=== PATIENT | male | born 1980 | race Caucasian/White ===

== ENCOUNTER 2019-03-21 10:15 | Observation (INO) ==
[2019-03-21] MEDS ORDERED: SODIUM CHLORIDE 0.9% 1000ML 1,000 ML IV SCH (11:15)
[2019-03-21 11:17] LABS: Basophils # (auto) 0.01 K/uL (0-0.2); Basophils % (auto) 0.2 %; Eosinophils # (auto) 0.14 K/uL (0-0.5); Eosinophils % (auto) 2.2 %; Hematocrit (blood only) 44.2 % (42-52); Hemoglobin 15.2 g/dL (14.0-18.0); Immature Granulocytes # (auto) 0.01 K/uL (0.00-0.02); Immature Granulocytes % (auto) 0.2 %; Lymphocytes # (auto) 1.63 K/uL (1.2-3.4); Lymphocytes % (auto) 25.8 %; Mean Corpuscular Hemoglobin 29.1 pg (25-34); Mean Corpuscular Hgb Conc 34.4 g/dL (32-36); Mean Corpuscular Volume 84.7 fL (80-100); Mean Platelet Volume 11.3 fL (7.4-10.4); Monocytes # (auto) 0.52 K/uL (0.11-0.59); Monocytes % (auto) 8.2 %; Neutrophils # (auto) 4.02 K/uL (1.4-6.5); Neutrophils % (auto) 63.4 %; Platelet Count 213 K/uL (130-400); RDW Coefficient of Variation 13.5 % (11.5-14.5); RDW Standard Deviation 41.5 fL (36.4-46.3); Red Blood Count 5.22 M/uL (4.7-6.1); White Blood Count 6.33 K/uL (4.8-10.8)
[2019-03-21 11:36] LABS: Alanine Aminotransferase 55 U/L (12-78); Aspartate Aminotransferase 25 U/L (15-37); BUN Creatinine Ratio 14.7 (10-20); Blood Urea Nitrogen 14 mg/dl (7-18); Calcium 9.9 mg/dl (8.5-10.1); Carbon Dioxide 28 mmol/L (21-32); Chloride 102 mmol/L (98-107); Creatinine Clr Calc Pharmacy 156.4 ml/min; Est GFR (African American) 119.4; Glucose 93 mg/dl (70-99); Potassium 3.9 mmol/L (3.5-5.1); Sodium 137 mmol/L (136-145)
[2019-03-21 11:39] LABS: Albumin Globulin Ratio 1.1 (0.9-2); Alkaline Phosphatase 73 U/L (45-117); Bilirubin,Total 0.3 mg/dl (0.2-1); Globulin 3.8 gm/dl (2.5-4.0); Total Protein 7.8 gm/dl (6.4-8.2)
--- NOTE | 2019-03-21 11:43 | CT Scan Report ---
HEAD CT NONCONTRAST CT DOSE: 614.27 mGy.cm HISTORY: dizzy eval for cva TECHNIQUE: Multiaxial CT images of the head were performed without the use of intravenous contrast. A utomated exposure control was utilized for this study. A dose lowering technique was utilized adheri ng to the principles of ALARA. Comparison: None. Findings: The paranasal sinuses and mastoid air cells are clear. The calvarium and skull base are int act. The ventricles and sulci are within normal limits. There is no mass, hematoma, midline shift, or acute infarct. Impression: No acute intracranial abnormality. Electronically signed by: Sergey Farah M.D. 03/21/2019 11:42 AM
[2019-03-21 11:52] LABS: Troponin I < 0.015 ng/ml (0-0.045)
[2019-03-21 11:57] LABS: D Dimer < 190 ug/L FEU (0-500)
[2019-03-21 12:47] LABS: Appearance Urine Clear (Clear); Bilirubin Urine Negative (Negative); Blood Urine Negative (Negative); Color Urine Yellow; Glucose Urine UA Negative (Negative); Ketones Urine Negative (Negative); Leukocyte Esterase Urine Negative (Negative); Nitrite Urine Negative (Negative); Protein Urine Negative (Negative); Specific Gravity Urine 1.012 (1.000-1.030); Urobilinogen Urine Negative (Negative); pH Urine 7.5 (4.5-7.5)
--- NOTE | 2019-03-21 12:53 | XRay Report ---
XR chest 2V routine HISTORY: dizzy eval for pna COMPARISON: None. FINDINGS: The lungs are clear. Cardiac silhouette is normal in size. No pleural effusions. No pneumot horax. IMPRESSION: No acute process. Electronically signed by: Sergey Farah M.D. 03/21/2019 12:52 PM
[2019-03-21 13:10] LABS: Amphetamines+Metham, Urine Neg (Neg); Barbiturates, Urine Neg (Neg); Benzodiazepine, Urine Neg (Neg); Cocaine, Urine Neg (Neg); MDMA (Ecstacy), Urine Neg (Neg); Methadone, Urine Neg (Neg); Opiate, Urine Neg (Neg); Phencyclidine, Urine Neg (Neg)
[2019-03-21] MEDS ORDERED: NITROGLYCERIN 2% OINTMENT 30GM TUBE EXT ONE (13:28)
[2019-03-21] MEDS ORDERED: OPTIRAY 320 125ml IV PRN (13:49)
--- NOTE | 2019-03-21 14:12 | CT Scan Report ---
CT ANGIOGRAM OF THE CHEST CLINICAL HISTORY: Atypical chest pain. Dizziness. COMPARISON STUDY: Chest x-ray dated 03/21/2019. TECHNIQUE: Following the IV administration of 118 cc of Optiray 320, CT angiogram of the chest was pe rformed from the upper abdomen to the thoracic inlet utilizing the pulmonary embolus protocol. Images are reviewed in the axial, sagittal, and coronal planes. 3-D MIPS images are created and assessed. T here is a malfunction with the IV line which became disconnected during the initial injection. IV con trast was then administered without complication. A dose lowering technique was utilized adhering to the principles of ALARA. CT DOSE: 2020.70 mGy.cm FINDINGS: Thyroid: Imaged portions of the thyroid gland are normal in size and attenuation. Thoracic aorta: The thoracic aorta is normal in caliber and demonstrates bovine variant arch anatomy. No dissection is seen. Pulmonary vasculature: The pulmonary trunk is normal in caliber. There are no filling defects identif ied in main, lobar, or segmental pulmonary branches to suggest pulmonary embolus. Heart: The heart is normal in size and without pericardial effusion. Lungs and pleural spaces: The lungs and pleural spaces are clear. The trachea and central airways are patent. Mediastinum: There is no mediastinal lymphadenopathy. Blaire: Clear. Axillae: There is no axillary lymphadenopathy. Upper abdomen: There is a tiny hiatal hernia. The liver is enlarged and steatotic. Skeletal structures: No lytic or blastic bony lesions are seen. A large Schmorl's node is seen in the superior endplate of T11. IMPRESSION: 1. There is no evidence of pulmonary embolus in the main, lobar, or segmental pulmonary arteries. 2. There is no airspace consolidation or pleural effusion. 3. Hepatomegaly and hepatic steatosis. Electronically signed by: Freddy Jesus M.D. 03/21/2019 2:10 PM
[2019-03-21] MEDS ORDERED: CALCIUM CARBONATE 500 MG CHEWABLE TAB PO STA (15:36)
--- NOTE | 2019-03-21 15:50 | History & Physical Report ---
Date of Service March 21, 2019 Assessment & Plan (1) Hypertensive urgency: Blood pressure was 183/112 and persistently elevated in the ER. This may be causing all symptoms including chest tightness and lightheadedness. Nitro paste brought BP into high normal range. Will start Lis/HCTZ now and continue to monitor BP closely. (2) Syncope: One episode of questionable LOC while in the ER after receiving a PIV. Multiple reports of presyncopal episodes in the past usually along with exertion or environmental exposures. Will obtain an echocardiogram to evaluate further. (3) Orthostatic hypotension: Orthostatic positive with position change. Gave NSS and will cont IVF for another 2 Liters. Differential for dizziness/lightheadedness includes but not limited to postural hypotension, ACS, bilateral cerumen impaction, B12 deficiency, diabetes, vertebrobasilar insufficiency. Trend trops, echo ordered, Debrox to ears, B12 and A1C with next blood draw. Monitor for improvement on telemetry. (4) Obesity: (5) DVT prophylaxis: SCDs Full Dispo-plan for home when medically stable. Maria T Polo DO [facility] Hospitalist History of Present Illness Chief Complaint: recurrent lightheadedness Primary Care Provider: NO PCP 38 yo obese but otherwise healthy man presents to the ER today after recurrent episodes of lightheadedness and dizziness. 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 He reports eating breakfast consisting of a [employer] breakfast quesadilla and water around 0600, and the first concerning symptom occurring around 0900. He reported the episode going away and then returning after he sat down in the breakroom at work. He reports the episodes were recurring over the next 30-45 minutes. The initial episode of lightheadedness was associated with some regurgitation of food into his throat, a symptom he typically feels when lying down at night soon after eating. He denies any associated stroke like symptoms such as headache, exp ressive or receptive aphasia, difficulty walking or difficulty moving arms or legs. He denies any visual changes. He denies any shortness of breath, fevers, chills, recent infectious symptoms, diarrhea, constipation, blood per rectum, vomiting. He has been eating and feeling fine up until today. He denies use of OTC products such as supplements or herbals. Upon returning from CT scan, he developed a chest tightness that involved his "whole body" and lasted approximately 45 minutes, resolved with nitropaste to the chest wall. When this chest pain occurred, he denied any associated diaph oresis, SOB, lightheadedness, nausea or other issues. He is currently feeling well at rest but on exam became significantly lightheaded with sitting up in bed. Orthostatic vital signs were positive in the ER and he was given 1L NSS. He is hungry and asking for food. Allergies Allergy/AdvReac Type Severity Reaction Status Date / Time No Known Allergies Allergy Unverified 03/21/19 12:31 Home Medications Home Medications Medication Instructions Recorded Confirmed Type No Known Home Medications 03/21/19 03/21/19 History Past Med/Surg History Medical History Heartburn symptom Surgical History No history of previous surgery Family History Father CHF (congestive heart failure) Mother Kidney disease Grandfather (Paternal) , in 50s from heart attack Coronary heart disease Social History Preferred Language: [place] current occupation: makes computers Feels Safe at Home: Yes Smoking Status: Never smoker Hx Alcohol Use: No Hx Substance Use: No Review of Systems Review of Systems: At least ten systems were reviewed and negative except as indicated on HPI above. Physical Exam Physical Exam: CONSTITUTIONAL: obese, vitals as above, generally well- appearing EYES: EOMI bilaterally, PERRL, normal conjunctivae, no scleral icterus ENT: external ear and nose normal, oropharynx clear, +cerumen in auditory canals bilat blocking view of TM NECK: trachea midline RESPIRATORY: clear to auscultation bilaterally, no crackles, rales or wheezes, normal respiratory effort CARDIOVASCULAR: regular rate and rhythm, S1 and 2 heard without murmurs, gallops or rubs, no JVD, no peripheral edema GASTROINTESTINAL: normal bowel sounds, soft, nontender, nondistended MUSCULOSKELETAL: strength 5/5 throughout, head is normocephalic and atraumatic SKIN: warm and dry NEUROLOGIC: No facial palsy, no dysarthria. CN 2-12 grossly intact, no sensory deficit, normal cognition, normal speech, no tremor PSYCHIATRIC: alert cooperative and oriented to person, place and time. Results & Data Vital Signs (Past 12 Hours) Vital Signs Temp Pulse Pulse Resp BP BP Pulse Ox 03/21/19 14:30 96 H 20 157/90 H 95 03/21/19 13:46 81 18 145/87 H 91 03/21/19 11:57 93 H 18 128/95 97 03/21/19 10:43 89 99 03/21/19 10:22 36.8 C 89 20 183/112 H 99 Laboratory Results Short CBC 03/21/19 Range/Units 10:45 WBC 6.33 (4.8-10.8) K/uL Hgb 15.2 (14.0-18.0) g/dL Hct 44.2 (42-52) % Plt Count 213 (130-400) K/uL BMP 03/21/19 10:45 Sodium 137 Potassium 3.9 Chloride 102 Carbon Dioxide 28 BUN 14 Creatinine 0.93 Glucose 93 Calcium 9.9 Cardiac Enzymes 03/21/19 03/21/19 Range/Units 10:45 10:45 Troponin I < 0.015 Cancelled (0-0.045) ng/ml Liver Function 03/21/19 Range/Units 10:45 Total Bilirubin 0.3 (0.2-1) mg/dl AST 25 (15-37) U/L ALT 55 (12-78) U/L Alkaline Phosphatase 73 (45-117) U/L Albumin 4.0 (3.4-5.0) gm/dl Urine 03/21/19 Range/Units 11:50 Urine Color Yellow Urine Appearance Clear (Clear) Urine pH 7.5 (4.5-7.5) Ur Specific [place] 1.012 (1.000-1.030) Urine Protein Negative (Negative) Urine Glucose (UA) Negative (Negative) Diagnostic Findings CT ANGIOGRAM OF THE CHEST CLINICAL HISTORY: Atypical chest pain. Dizziness. COMPARISON STUDY: Chest x-ray dated 03/21/2019. TECHNIQUE: Following the IV administration of 118 cc of Optiray 320, CT angiogram of the chest was performed from the upper abdomen to the thoracic inlet utilizing the pulmonary embolus protocol. Images are reviewed in the axial, sagittal, and coronal planes. 3-D MIPS images are created and assessed. There is a malfunction with the IV line which became disconnected during the initial injection. IV contrast was then administered without complication. A dose lowering technique was utilized adhering to the principles of ALARA. CT DOSE: 2020.70 mGy.cm FINDINGS: Thyroid: Imaged portions of the thyroid gland are normal in size and attenuation. Thoracic aorta: The thoracic aorta is normal in caliber and demonstrates bovine variant arch anatomy. No dissection is seen. Pulmonary vasculature: The pulmonary trunk is normal in caliber. There are no filling defects identified in main, lobar, or segmental pulmonary branches to suggest pulmonary embolus. Heart: The heart is normal in size and without pericardial effusion. Lungs and pleural spaces: The lungs and pleural spaces are clear. The trachea and central airways are patent. Mediastinum: There is no mediastinal lymphadenopathy. Blaire: Clear. Axillae: There is no axillary lymphadenopathy. Upper abdomen: There is a tiny hiatal hernia. The liver is enlarged and steatotic. Skeletal structures: No lytic or blastic bony lesions are seen. A large Schmorl's node is seen in the superior endplate of T11. IMPRESSION: 1. There is no evidence of pulmonary embolus in the main, lobar, or segmental pulmonary arteries. 2. There is no airspace consolidation or pleural effusion. 3. Hepatomegaly and hepatic steatosis. XR chest 2V routine HISTORY: dizzy eval for pna COMPARISON: None. FINDINGS: The lungs are clear. Cardiac silhouette is normal in size. No pleural effusions. No pneumothorax. IMPRESSION: No acute process. HEAD CT NONCONTRAST CT DOSE: 614.27 mGy.cm HISTORY: dizzy eval for cva TECHNIQUE: Multiaxial CT images of the head were performed without the use of intravenous contrast. Automated exposure control was utilized for this study. A dose lowering technique was utilized adhering to the principles of ALARA. Comparison: None. Findings: The paranasal sinuses and mastoid air cells are clear. The calvarium and skull base are intact. The ventricles and sulci are within normal limits. There is no mass, hematoma, midline shift, or acute infarct. Impression: No acute intracranial abnormality. Medications Administered Nitro paste NSS x 1L Code Status & VTE Plan Code Status FULL VTE Prophylaxis Plan VTE Prophylaxis will be ordered: Yes Critical Care Time Critical Care Time: No Prolonged Care Time Prolonged Care Time: No Critical Care Time Critical Care Time: No
[2019-03-21] MEDS ORDERED: ASPIRIN 81 MG CHEW PO STA (16:28)
[2019-03-21] MEDS ORDERED: LISINOPRIL/HCTZ 10/12.5MG TAB PO SCH (16:30)
--- NOTE | 2019-03-21 16:42 | Emergency Department Note ---
Entered by Armond Lambert acting as a scribe for Samson Bowens MD History of Present Illness General Chief complaint: Dizziness Stated complaint: STOMACH PAIN,DIZZY, NEAR SYNCOPE Time Seen by Provider: 03/21/19 10:52 Source: patient History of Present Illness Provider complaint: dizziness and light headedness Onset (ago): hour(s) 2 Location: head Pain Consistency: + intermittent Maximum Pain Intensity: 0 Quality: + other (dizziness, light headedness, room spinning) Exacerbated By: + movement Associated symptoms: + denies other symptoms; no chest pain, no fever/chills, no headaches, no shortness of breath and no weakness The patient is a 38 y/o male with no past medical history, who presents to the emergency department for evaluation of intermittent light headedness that began two hours ago. The patient states that he felt light headed with the room slightly spinning when he threw up in his mouth. He notes that he walked to the bathroom and felt okay but when he went back to his workspace he began feeling dizzy again with mild abdominal discomfort. 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 The mother notes that the patient has experienced the dizzy episodes in the past but the patient notes not within the past few months to year and never this long. The mother also reports that in the ED the patient closed his eyes, with lip quivering when the patient began mumbling and was unresponsive to his name. The patient states that he does not remember this episode and was not confused afterwards. The patient denies chest pain, SOB, fever, vomiting, diarrhea, numbness, weakness, headache, recent head injury, and any other symptoms. Home Medications Home Medications Medication Instructions Recorded Confirmed Type No Known Home Medications 03/21/19 03/21/19 History Allergies Allergy/AdvReac Type Severity Reaction Status Date / Time No Known Allergies Allergy Unverified 03/21/19 12:31 Past Med/Surg History Medical History Heartburn symptom Surgical History No history of previous surgery Family History Father CHF (congestive heart failure) Mother Kidney disease Grandfather (Paternal) , in 50s from heart attack Coronary heart disease Social History Preferred Language: Hebrew current occupation: makes computers Feels Safe at Home: Yes Smoking Status: Never smoker Hx Alcohol Use: No Hx Substance Use: No Review of Systems See HPI for pertinent positives & negatives. and A total of 10 systems reviewed and were otherwise negative Physical Exam Vital Signs Vital Signs - 24 hr 03/21/19 10:22 03/21/19 10:43 03/21/19 11:53 Temperature 36.8 C Temperature Source Oral Sepsis Recent Fever Within 48 Hours No Sepsis New/Unexplained Change in Mental Status No Sepsis Action Taken by Nursing No Action Required Pulse Rate - Lying 82 Pulse Rate - Sitting 91 H Pulse Rate - Standing 98 H Pulse Rate 89 89 Pulse Rate [Left] Pulse Rhythm Regular Pulse Strength Normal Respiratory Rate 20 Respiratory Effort / Characteristics Non-Labored Spontaneous Respiratory Depth Normal Respiratory Pattern Regular Blood Pressure - Lying 135/94 Blood Pressure - Sitting 161/101 H Blood Pressure- Standing 128/95 Blood Pressure 183/112 H Blood Pressure [Right Arm] Blood Pressure Mean 135 Blood Pressure Mean [Right Arm] Blood Pressure Position Sitting Blood Pressure Position [Right Arm] Pulse Oximetry 99 99 Oxygen Delivery Method Room Air Room Air 03/21/19 11:57 03/21/19 13:46 03/21/19 14:30 Temperature Temperature Source Sepsis Recent Fever Within 48 Hours Sepsis New/Unexplained Change in Mental Status Sepsis Action Taken by Nursing Pulse Rate - Lying Pulse Rate - Sitting Pulse Rate - Standing Pulse Rate Pulse Rate [Left] 93 H 81 96 H Pulse Rhythm Pulse Strength Respiratory Rate 18 18 20 Respiratory Effort / Characteristics Non-Labored Spontaneous Non-Labored Spontaneous Non-Labored Spontaneous Respiratory Depth Respiratory Pattern Blood Pressure - Lying Blood Pressure - Sitting Blood Pressure- Standing Blood Pressure Blood Pressure [Right Arm] 128/95 145/87 H 157/90 H Blood Pressure Mean Blood Pressure Mean [Right Arm] 106 106 112 Blood Pressure Position Blood Pressure Position [Right Arm] Standing Sitting Lying Pulse Oximetry 97 91 95 Oxygen Delivery Method Room Air Room Air Room Air 03/21/19 16:16 Temperature Temperature Source Sepsis Recent Fever Within 48 Hours Sepsis New/Unexplained Change in Mental Status Sepsis Action Taken by Nursing Pulse Rate - Lying Pulse Rate - Sitting Pulse Rate - Standing Pulse Rate Pulse Rate [Left] 91 H Pulse Rhythm Pulse Strength Respiratory Rate 18 Respiratory Effort / Characteristics Respiratory Depth Normal Respiratory Pattern Blood Pressure - Lying Blood Pressure - Sitting Blood Pressure- Standing Blood Pressure Blood Pressure [Right Arm] 177/112 H Blood Pressure Mean Blood Pressure Mean [Right Arm] 133 Blood Pressure Position Blood Pressure Position [Right Arm] Pulse Oximetry 97 Oxygen Delivery Method Room Air Constitutional: Vital signs reviewed. Eyes: Pupils are equal round reactive to light. Conjunctiva are noninjected. ENT: Pharynx is clear without erythema or exudate. Mucous membranes are moist. Neck supple without meningeal signs. Respiratory: Clear to auscultation bilaterally. Breath sounds are equal bilaterally. Cardiovascular: Regular rate and rhythm. No rubs or gallops. GI: Soft, nondistended and nontender. Bowel sounds are present. Musculoskeletal: No peripheral edema. No lower extremity tenderness. Integumentary: No cyanosis. Neurological: The patient is awake and alert. Cranial nerves II-XII are intact. Motor is 5 out of 5 all extremities. Sensation is intact to light touch all extremities. Normal speech. No pronator drift. No limb ataxia. No dysdiadochokinesia. Psychiatric: Normal affect. Course 1052: Past medical records reviewed. The patient was evaluated in room C06. A complete history and physical exam was performed. 1325: I spoke with the patient he notes that he has developed chest tightness and tinging around his mouth. Mother notes that the patients father had heart failure in his 40s. 1403: The patient notes that his chest pain has improved. He just returned from CT. 1422: I spoke with David DE LA TORRE for Dr.Sumner Be hospitalist. Will evaluate for further management Administered Medications Ioversol (Optiray 320 125ml) 118 ml IV ONCE PRN PRN Reason: Interaction Checking Stop: 03/25/19 13:48 Last Admin: 03/21/19 13:50 Dose: 118 ml Documented by: [id number] Discontinued Medications Calcium Carbonate (Tums) 1,000 mg PO ONE STA Stop: 03/21/19 15:37 Last Admin: 03/21/19 15:49 Dose: 1,000 mg Documented by: [id number] Sodium Chloride (Nss 1000ml) 1,000 mls @ 999 mls/hr IV .Q1H1M KECIA Stop: 03/21/19 12:15 Last Infusion: 03/21/19 13:04 Dose: 0 mls/hr Documented by: [id number] Admin: 03/21/19 11:58 Dose: 999 mls/hr Documented by: [id number] Nitroglycerin (Nitro-Bid 2%) 0.5 inch EXT NOW ONE Stop: 03/21/19 13:29 Last Admin: 03/21/19 13:39 Dose: 0.5 inch Documented by: [id number] Medical Decision Making Differential Diagnosis Differential Diagnosis: Dehydration, metabolic derangement, seizure, dysrhythmia, PE Medical Records Attestation: I reviewed the patient's medical records. I did perform a limited focused review of portions of the patient's old chart on the electronic medical record. The patient has had no recent pertinent visits to this hospital. Home Medications Current Medication List: was personally reviewed by me Laboratory Data Attestation: I reviewed the patient's lab results. Result diagrams: 03/21/19 10:45 03/21/19 10:45 Lab Results 03/21/19 03/21/19 03/21/19 Range/Units 10:45 10:45 10:45 WBC 6.33 (4.8-10.8) K/uL RBC 5.22 (4.7-6.1) M/uL Hgb 15.2 (14.0-18.0) g/dL Hct 44.2 (42-52) % MCV 84.7 (80-100) fL MCH 29.1 (25-34) pg MCHC 34.4 (32-36) g/dL RDW Std Deviation 41.5 (36.4-46.3) fL RDW Coeff of Masha 13.5 (11.5-14.5) % Plt Count 213 (130-400) K/uL MPV 11.3 H (7.4-10.4) fL Immature Gran % (Auto) 0.2 % Neut % (Auto) 63.4 % Lymph % (Auto) 25.8 % [place] % (Auto) 8.2 % Eos % (Auto) 2.2 % Baso % (Auto) 0.2 % Immature Gran # (Auto) 0.01 (0.00-0.02) K/uL Neut # (Auto) 4.02 (1.4-6.5) K/uL Lymph # (Auto) 1.63 (1.2-3.4) K/uL [place] # (Auto) 0.52 (0.11-0.59) K/uL Eos # (Auto) 0.14 (0-0.5) K/uL Baso # (Auto) 0.01 (0-0.2) K/uL D-Dimer < 190 (0-500) ug/L FEU Sodium 137 (136-145) mmol/L Potassium 3.9 (3.5-5.1) mmol/L Chloride 102 (98-107) mmol/L Carbon Dioxide 28 (21-32) mmol/L Anion Gap 7.0 (3-11) BUN 14 (7-18) mg/dl Creatinine 0.93 (0.6-1.4) mg/dl Est Cr Clr Drug Dosing 156.4 ml/min Est GFR ( Amer) 119.4 Est GFR (Non-Af Amer) 103.0 BUN/Creatinine Ratio 14.7 (10-20) Glucose 93 (70-99) mg/dl POC Glucose (70-99) Calcium 9.9 (8.5-10.1) mg/dl Total Bilirubin 0.3 (0.2-1) mg/dl AST 25 (15-37) U/L ALT 55 (12-78) U/L Alkaline Phosphatase 73 (45-117) U/L Troponin I < 0.015 (0-0.045) ng/ml Total Protein 7.8 (6.4-8.2) gm/dl Albumin 4.0 (3.4-5.0) gm/dl Globulin 3.8 (2.5-4.0) gm/dl Albumin/Globulin Ratio 1.1 (0.9-2) Urine Color Urine Appearance (Clear) Urine pH (4.5-7.5) Ur Specific [place] (1.000-1.030) Urine Protein (Negative) Urine Glucose (UA) (Negative) Urine Ketones (Negative) Urine Blood (Negative) Urine Nitrite (Negative) Urine Bilirubin (Negative) Urine Urobilinogen (Negative) Ur Leukocyte Esterase (Negative) Urine Opiates Screen (Neg) Ur Methadone, Qual (Neg) Urine Barbiturates (Neg) Ur Phencyclidine (PCP) (Neg) U Amphetamin/Meth Scrn (Neg) MDMA (Ecstasy) Screen (Neg) U Benzodiazepines Scrn (Neg) Ur Cocaine Metabolite (Neg) U Marijuana (THC) Screen (Neg) 03/21/19 03/21/19 03/21/19 Range/Units 10:45 10:49 11:50 WBC (4.8-10.8) K/uL RBC (4.7-6.1) M/uL Hgb (14.0-18.0) g/dL Hct (42-52) % MCV (80-100) fL MCH (25-34) pg MCHC (32-36) g/dL RDW Std Deviation (36.4-46.3) fL RDW Coeff of Masha (11.5-14.5) % Plt Count (130-400) K/uL MPV (7.4-10.4) fL Immature Gran % (Auto) % Neut % (Auto) % Lymph % (Auto) % [place] % (Auto) % Eos % (Auto) % Baso % (Auto) % Immature Gran # (Auto) (0.00-0.02) K/uL Neut # (Auto) (1.4-6.5) K/uL Lymph # (Auto) (1.2-3.4) K/uL [place] # (Auto) (0.11-0.59) K/uL Eos # (Auto) (0-0.5) K/uL Baso # (Auto) (0-0.2) K/uL D-Dimer (0-500) ug/L FEU Sodium (136-145) mmol/L Potassium (3.5-5.1) mmol/L Chloride (98-107) mmol/L Carbon Dioxide (21-32) mmol/L Anion Gap (3-11) BUN (7-18) mg/dl Creatinine (0.6-1.4) mg/dl Est Cr Clr Drug Dosing ml/min Est GFR ( Amer) Est GFR (Non-Af Amer) BUN/Creatinine Ratio (10-20) Glucose (70-99) mg/dl POC Glucose 98 (70-99) Calcium (8.5-10.1) mg/dl Total Bilirubin (0.2-1) mg/dl AST (15-37) U/L ALT (12-78) U/L Alkaline Phosphatase (45-117) U/L Troponin I Cancelled (0-0.045) ng/ml Total Protein (6.4-8.2) gm/dl Albumin (3.4-5.0) gm/dl Globulin (2.5-4.0) gm/dl Albumin/Globulin Ratio (0.9-2) Urine Color Urine Appearance (Clear) Urine pH (4.5-7.5) Ur Specific [place] (1.000-1.030) Urine Protein (Negative) Urine Glucose (UA) (Negative) Urine Ketones (Negative) Urine Blood (Negative) Urine Nitrite (Negative) Urine Bilirubin (Negative) Urine Urobilinogen (Negative) Ur Leukocyte Esterase (Negative) Urine Opiates Screen Neg (Neg) Ur Methadone, Qual Neg (Neg) Urine Barbiturates Neg (Neg) Ur Phencyclidine (PCP) Neg (Neg) U Amphetamin/Meth Scrn Neg (Neg) MDMA (Ecstasy) Screen Neg (Neg) U Benzodiazepines Scrn Neg (Neg) Ur Cocaine Metabolite Neg (Neg) U Marijuana (THC) Screen Neg (Neg) 03/21/19 Range/Units 11:50 WBC (4.8-10.8) K/uL RBC (4.7-6.1) M/uL Hgb (14.0-18.0) g/dL Hct (42-52) % MCV (80-100) fL MCH (25-34) pg MCHC (32-36) g/dL RDW Std Deviation (36.4-46.3) fL RDW Coeff of Masha (11.5-14.5) % Plt Count (130-400) K/uL MPV (7.4-10.4) fL Immature Gran % (Auto) % Neut % (Auto) % Lymph % (Auto) % [place] % (Auto) % Eos % (Auto) % Baso % (Auto) % Immature Gran # (Auto) (0.00-0.02) K/uL Neut # (Auto) (1.4-6.5) K/uL Lymph # (Auto) (1.2-3.4) K/uL [place] # (Auto) (0.11-0.59) K/uL Eos # (Auto) (0-0.5) K/uL Baso # (Auto) (0-0.2) K/uL D-Dimer (0-500) ug/L FEU Sodium (136-145) mmol/L Potassium (3.5-5.1) mmol/L Chloride (98-107) mmol/L Carbon Dioxide (21-32) mmol/L Anion Gap (3-11) BUN (7-18) mg/dl Creatinine (0.6-1.4) mg/dl Est Cr Clr Drug Dosing ml/min Est GFR ( Amer) Est GFR (Non-Af Amer) BUN/Creatinine Ratio (10-20) Glucose (70-99) mg/dl POC Glucose (70-99) Calcium (8.5-10.1) mg/dl Total Bilirubin (0.2-1) mg/dl AST (15-37) U/L ALT (12-78) U/L Alkaline Phosphatase (45-117) U/L Troponin I (0-0.045) ng/ml Total Protein (6.4-8.2) gm/dl Albumin (3.4-5.0) gm/dl Globulin (2.5-4.0) gm/dl Albumin/Globulin Ratio (0.9-2) Urine Color Yellow Urine Appearance Clear (Clear) Urine pH 7.5 (4.5-7.5) Ur Specific [place] 1.012 (1.000-1.030) Urine Protein Negative (Negative) Urine Glucose (UA) Negative (Negative) Urine Ketones Negative (Negative) Urine Blood Negative (Negative) Urine Nitrite Negative (Negative) Urine Bilirubin Negative (Negative) Urine Urobilinogen Negative (Negative) Ur Leukocyte Esterase Negative (Negative) Urine Opiates Screen (Neg) Ur Methadone, Qual (Neg) Urine Barbiturates (Neg) Ur Phencyclidine (PCP) (Neg) U Amphetamin/Meth Scrn (Neg) MDMA (Ecstasy) Screen (Neg) U Benzodiazepines Scrn (Neg) Ur Cocaine Metabolite (Neg) U Marijuana (THC) Screen (Neg) Imaging Data Radiologist's Impression: Radiology results as stated below per my review and the radiologist's interpretation: HEAD CT NONCONTRAST CT DOSE: 614.27 mGy.cm HISTORY: dizzy eval for cva TECHNIQUE: Multiaxial CT images of the head were performed without the use of intravenous contrast. Automated exposure control was utilized for this study. A dose lowering technique was utilized adhering to the principles of ALARA. Comparison: None. Findings: The paranasal sinuses and mastoid air cells are clear. The calvarium and skull base are intact. The ventricles and sulci are within normal limits. There is no mass, hematoma, midline shift, or acute infarct. Impression: No acute intracranial abnormality. Electronically signed by: Sergey Farah M.D. 03/21/2019 11:42 AM XR chest 2V routine HISTORY: dizzy eval for pna COMPARISON: None. FINDINGS: The lungs are clear. Cardiac silhouette is normal in size. No pleural effusions. No pneumothorax. IMPRESSION: No acute process. Electronically signed by: Sergey Farah M.D. 03/21/2019 12:[address] ANGIOGRAM OF THE CHEST CLINICAL HISTORY: Atypical chest pain. Dizziness. COMPARISON STUDY: Chest x-ray dated 03/21/2019. TECHNIQUE: Following the IV administration of 118 cc of Optiray 320, CT angiogram of the chest was performed from the upper abdomen to the thoracic inlet utilizing the pulmonary embolus protocol. Images are reviewed in the axial, sagittal, and coronal planes. 3-D MIPS images are created and assessed. There is a malfunction with the IV line which became disconnected during the initial injection. IV contrast was then administered without complication. A dose lowering technique was utilized adhering to the principles of ALARA. CT DOSE: 2020.70 mGy.cm FINDINGS: Thyroid: Imaged portions of the thyroid gland are normal in size and attenuation. Thoracic aorta: The thoracic aorta is normal in caliber and demonstrates bovine variant arch anatomy. No dissection is seen. Pulmonary vasculature: The pulmonary trunk is normal in caliber. There are no filling defects identified in main, lobar, or segmental pulmonary branches to suggest pulmonary embolus. Heart: The heart is normal in size and without pericardial effusion. Lungs and pleural spaces: The lungs and pleural spaces are clear. The trachea and central airways are patent. Mediastinum: There is no mediastinal lymphadenopathy. Blaire: Clear. Axillae: There is no axillary lymphadenopathy. Upper abdomen: There is a tiny hiatal hernia. The liver is enlarged and steatotic. Skeletal structures: No lytic or blastic bony lesions are seen. A large Schmorl's node is seen in the superior endplate of T11. IMPRESSION: 1. There is no evidence of pulmonary embolus in the main, lobar, or segmental pu lmonary arteries. 2. There is no airspace consolidation or pleural effusion. 3. Hepatomegaly and hepatic steatosis. Electronically signed by: Freddy Jesus M.D. 03/21/2019 2:10 PM ECG Data Attestation: I personally reviewed and interpreted this ECG as follows: Indication: other (dizzy) Rate (beats per minute): 86 Rhythm: normal sinus Findings: no PVC and no ST elevation Comparison ECG Date: from (03/21/19) Change: the following changes noted Additional Comments: Repeat EKG at 1336 Normal sinus with rate of [address] elevation No PVC for Chest pain. Blood Pressure Blood Pressure Findings: Elevated blood pressure Blood Pressure Disposition: further management by hospitalist [facility] Narrative I did evaluate the patient as noted above. The patient is presenting with lightheadedness with some mild vertigo. He is neurologically intact without any cerebellar signs. He was reported to have central cyanosis by his employer. He was also noted to have had an unresponsive episode in the ED. This was seen by his mother and father and by the time the nurse got there it was resolved. The patient himself does not remember this episode. Mother states he was muttering but had no seizure-like activity. There is no history of epilepsy in the family. He denies any head injury. Currently he states he just feels lightheaded and weak. IV access was established. The patient was placed on a continuous nuclear monitoring technician. I did order and personally review the patient's 12- lead EKG as described above. There is no evidence of acute ischemia. I did order and personally reviewed the images of the patient's chest x-ray as described above. Chest x-ray is unremarkable. There is no pneumonia. I did order a urine analysis. There is no infection. Urine tox screen is negative. I did order and review the patient's blood work as noted in the electronic medical record. Troponin and d-dimer are both negative. He is not anemic. White count is not elevated. Electrolytes are unremarkable. I did order a CT of the head. I did review the images myself as well as the radiology report as described above. There is no evidence of acute intracranial abnormality. I did reassess the patient. He now states that he developed chest pain which she describes as a tightness. This occurred while in the ED. I did repeat another twelve-lead EKG which showed no acute ischemic changes. I did treat him with nitroglycerin paste and recommended CT to rule out pulmonary embolism given his prior history of cyanosis and unresponsiveness. He was agreeable to this and went for a CT angiogram of his chest. This did not show any acute pulmonary embolism. I did reassess the patient. Patient's chest pain is now gone. I did recommend hospitalization for further evaluation of his symptoms. I did discuss the case with the hospitalist and case reviewer. Impression & Plan Episode of unresponsiveness, Chest pain, precordial, Paresthesia Discharge Plan Visit Data Chief Complaint: Dizziness Stated Complaint: STOMACH PAIN,DIZZY, NEAR SYNCOPE ED Provider: Samson Bowens Discharge Problem: Episode of unresponsiveness, Chest pain, precordial, Paresthesia Patient Disposition: Being Evaluated by Hospitalist Discharge Instructions Interventions: ED Discharge Assessment Last Done: 03/21/19 16:24 Forms Stand Alone Forms: My [facility] aihuishou Prescriptions Prescriptions: No Action No Known Home Medications RF: 0 Referrals Referrals: PCP,NO [Primary Care Provider] - The scribe's documentation has been prepared under my direction and personally reviewed by me in its entirety. I confirm that the note above accurately reflects all work, treatment, procedures, and medical decision making performed by me.
[2019-03-21] MEDS ORDERED: lisinopriL 20 MG TAB PO STA (17:24)
[2019-03-21] MEDS ORDERED: FAMOTIDINE 20 MG TAB PO PRN (17:24)
[2019-03-21] MEDS ORDERED: NITROGLYCERIN SL 0.4 MG/TAB TAB SL PRN (17:24)
[2019-03-21] MEDS ORDERED: ONDANSETRON INJ 2 MG/ML 2 ML VIAL IV PRN (17:24)
[2019-03-21] MEDS ORDERED: ACETAMINOPHEN 325 MG TAB PO PRN (17:24)
[2019-03-21] MEDS: SODIUM CHLORIDE 0.9% 1000ML 1,000 ML IV SCH (18:10)
[2019-03-21] MEDS: CARBAMIDE PEROXIDE 6.5% 15 ML BTL OTB SCH (20:12)
[2019-03-22] MEDS: SODIUM CHLORIDE 0.9% 1000ML 1,000 ML IV SCH (00:22)
[2019-03-22 06:06] LABS: Hematocrit (blood only) 41.2 % (42-52); Hemoglobin 14.1 g/dL (14.0-18.0); Mean Corpuscular Hgb Conc 34.2 g/dL (32-36); Mean Corpuscular Volume 84.6 fL (80-100); Platelet Count 179 K/uL (130-400); RDW Coefficient of Variation 13.8 % (11.5-14.5); RDW Standard Deviation 42.2 fL (36.4-46.3); Red Blood Count 4.87 M/uL (4.7-6.1); White Blood Count 6.08 K/uL (4.8-10.8)
[2019-03-22 06:34] LABS: BUN Creatinine Ratio 12.3 (10-20); Calcium 8.9 mg/dl (8.5-10.1); Creatinine Clr Calc Pharmacy 157.3 ml/min; Est GFR (Non-African American) 104.4; Potassium 3.9 mmol/L (3.5-5.1)
[2019-03-22] MEDS ORDERED: PERFLUTREN LIPID MICROSPHERE (DEFINITY) IV ONE (07:36)
[2019-03-22] MEDS ORDERED: lisinopriL 20 MG TAB PO SCH (09:00)
[2019-03-22] MEDS: CARBAMIDE PEROXIDE 6.5% 15 ML BTL OTB SCH ×2 (09:19→10:49)
--- NOTE | 2019-03-22 12:53 | Discharge Summary ---
Date of Service March 22, 2019 Admission HPI Per Admitting Provider 38 yo obese but otherwise healthy man presents to the ER today after recurrent episodes of lightheadedness and dizziness. 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 He reports eating breakfast consisting of a [employer] breakfast quesadilla and water around 0600, and the first concerning symptom occurring around 0900. He reported the episode going away and then returning after he sat down in the breakroom at work. He reports the episodes were recurring over the next 30-45 minutes. The initial episode of lightheadedness was associated with some regurgitation of food into his throat, a symptom he typically feels when lying down at night soon after eating. He denies any associated stroke like symptoms such as headache, expressive or receptive aphasia, difficulty walking or difficulty moving arms or legs. He denies any visual changes. He denies any shortness of breath, fevers, chills, recent infectious symptoms, diarrhea, constipation, blood per rectum, vo miting. He has been eating and feeling fine up until today. He denies use of OTC products such as supplements or herbals. Upon returning from CT scan, he developed a chest tightness that involved his "whole body" and lasted approximately 45 minutes, resolved with nitropaste to the chest wall. When this chest pain occurred, he denied any associated diaphoresis, SOB, lightheadedness, nausea or other issues. He is currently feeling well at rest but on exam became significantly lightheaded with sitting up in bed. Orthostatic vital signs were positive in the ER and he was given 1L NSS. He is hungry and asking for food. Admission Exam Per Admitting Provider CONSTITUTIONAL: obese, vitals as above, generally well-appearing EYES: EOMI bilaterally, PERRL, normal conjunctivae, no scleral icterus ENT: external ear and nose normal, oropharynx clear, +cerumen in auditory canals bilat blocking view of TM NECK: trachea midline RESPIRATORY: clear to auscultation bilaterally, no crackles, rales or wheezes, normal respiratory effort CARDIOVASCULAR: regular rate and rhythm, S1 and 2 heard without murmurs, john[place] ps or rubs, no JVD, no peripheral edema GASTROINTESTINAL: normal bowel sounds, soft, nontender, nondistended MUSCULOSKELETAL: strength 5/5 throughout, head is normocephalic and atraumatic SKIN: warm and dry NEUROLOGIC: No facial palsy, no dysarthria. CN 2-12 grossly intact, no sensory deficit, normal cognition, normal speech, no tremor PSYCHIATRIC: alert cooperative and oriented to person, place and time. Principal Diagnosis Hypertensive Urgency Discharge Data Allergies Allergy/AdvReac Type Severity Reaction Status Date / Time No Known Allergies Allergy Unverified 03/21/19 12:31 Ordered Studies 03/21/19 11:01 CT head/brain wo con Stat 03/21/19 13:28 CT angio chest PE protocol Stat Hospital Course (1) Hypertensive urgency: (2) Syncope: (3) Orthostatic hypotension: (4) Obesity: 38-year-old man admitted for hypertensive urgency and work-up of chest discomfort. He was admitted to telemetry and monitored overnight with no evidence of arrhythmia. Telemetry review revealed sinus rhythm in the 80s on average overnight. Serial troponin enzymes were drawn and negative. B12 was sufficient. Hemoglobin A1c was drawn and pending at time of discharge. Nitroglycerin improved his blood pressure which was originally 183/105. However, as a result of hair on his chest and Nitropaste came off and his blood pressure trended up to the 170s over 110s. He was given lisinopril 20 mg with improvement of blood pressure into the normal range overnight. He had no adverse side effects to the drug. Orthostasis improved after IV fluid administration the following day. A CTA of the chest revealed no evidence of pulmonary embolus, no airspace consolidation or fluid pleural effusion and evidence of fatty liver. A head CT was performed in the setting of dizziness revealing no acute intracranial abnormality. Dizziness resolved with improvement of blood pressure overnight. There was no further episode of chest pain overnight after blood pressure was controlled. The following morning he underwent an exercise stress echocardiogram and was only able to perform exercise for approximately 3 minutes and 43 seconds, stopping the test secondary to leg pain. However, this was a nonischemic exercise stress echocardiogram. He was noted to have hypertensive BP response to exercise with resting blood pressure 132/85 and maximum blood pressure 174/78. He did achieve 90% of maximum age-predicted heart rate did not develop symptoms concerning for ACS with exercise. A resting echocardiogram revealed ejection fraction 55 to 60% with evidence of mild concentric left ventricular hypertrophy. Normal wall motion and grade 1 diastolic dysfunction was seen. Valvular structures were poorly visualized but in general he was without significant stenosis or regurgitation by Doppler. At time of discharge she was hemodynamically stable and afebrile. He was mentating and ambulating at baseline with complete resolution of symptoms on admission. Physical exam revealed clear lungs to auscultation bilaterally with no respiratory distress noted. Cardiac exam revealed normal S1 and S2 without evidence of murmurs, gallops, rubs. The patient was obese with skin warm and dry. He had a large neck circumference. He was discharged in stable condition with close primary care follow-up recommended. After being started on lisinopril a follow-up BMP in 2 weeks time is recommended. Also, because the patient is young and overweight work-up of secondary cause of hypertension is reasonable including a sleep study. This was discussed with the patient. Also of note while he was lying in the ER bed he had a questionable syncopal episode after an IV was placed, however, he "woke up" within 30 seconds and was alert and oriented. It is not clear that he actually had syncope. Total Time Total Time Spent Total Time Spent (In Minutes): 60 Total Time Includes: Examination of the Patient, Discharge Planning, Medication Reconciliation, Communication With Other Providers and Other (arranged follow- up) Discharge Plan Discharge Items Patient Disposition: Home - Self-Care Reason For Visit: LIGHTHEADEDNESS, CHEST TIGHTNESS Discharge Diagnosis: Hypertensive urgency Condition on Discharge: Good Health Concerns: needs workup to screen for secondary causes of HTN needs titration of blood pressure medication needs to use larger blood pressure cuff size for accurate readings Goals: blood pressure goal <140/90 on average lower salt (sodium) intake to 2000mg or less daily Activity: Resume your previous activity Non-emergency contact: Primary Care Provider Call non-emergency contact if: you have any medication questions, your symptoms worsen, your pain is not controlled, your pain is worsening, your pain is unusual for you, your pain is concerning for you and you have a fever Follow-up/Referrals: PCP,NO [Primary Care Provider] - Diet: Low Sodium (2gm) Addtl Attending Provider Instructions: Please take all medications as instructed on discharge list below. You will need nonfasting blood work in 2 weeks time after starting new medication. This can be ordered by your primary care doctor at the follow-up appointment below. Please bring your insurance information with you. This appointment will be for repeat blood pressure check after starting new blood pressure medication and ordered lab work for monitoring. 03/27/2019 1:20 PM Thomas Gonzalez, DO Family Practice [facility] Please continue to strive for goal sodium intake of less than 2000 mg/day. It was a pleasure taking care of you! Please call if you have any questions or problems. You can reach a [facility] hospitalist on duty at [facility] 24 hours a day by calling [phone]. Take care of yourself. Maria T Polo DO Orthopaedic Hospitalist Pending Studies at Discharge: Yes Studies:: Hemoglobin A1c Stand-Alone Forms: My [facility], Work/School Release (Inpt) Medications and DC Order Prescriptions: New lisinopril 20 mg Tablet 20 mg PO QAM Qty: 30 RF: 1 Discharge Orders: Discharge Order (Routine); Ordered 03/22/19 Ordered By: Maria T Polo Admission Data Admit Date/Time: 03/21/19 15:39 Attending Provider: Maria T Polo Admit Provider: Maria T Polo Primary Care Provider: PCP,ANTONIO
[2019-03-22 13:10] LABS: Estimated Average Glucose 123 mg/dl; Hemoglobin A1C 5.9 % (4.5-5.6)
== END 2019-03-22 13:50 | disposition home or self-care (01) ==
LOC: 2N 10:15 → ED 10:15 → 2N 16:24